=== PATIENT | male | born 1935 | race Caucasian/White ===

== ENCOUNTER 2017-01-21 15:17 | Inpatient (IN) | payer OTHER ==
[~2017-01-21] VITALS: Ht 182.8 cm; Wt 89.8 kg
[2017-01-21] VITALS (19 sets, daily range): BP systolic 98–139; BP diastolic 56–97
--- NOTE | ~2017-01-21 | PR ---
[place], [place] PROGRESS NOTE NAME: ALVINO SIMONS UNIT #: [id number] ROOM: 522 DOCTOR: CAROLINE CHEN MD BIRTHDATE: [birth year] DOS: SUBJECTIVE: The patient is sitting up in bed, does not have any specific cardiac complaint. No chest pain, no symptomatic palpitation, no dizziness, no lightheadedness. OBJECTIVE: VITAL SIGNS: Blood pressure 115/72, heart rate 74, respiratory rate of 14, temperature 97.9. NECK: Good upstroke, no bruit. HEART: S1, S2 with no rub. LUNGS: Clear to auscultation. Slight decreased air movement. LOWER EXTREMITIES: Mild ankle edema. LABORATORY DATA: INR is 1.5. Rhythm strips still showing atrial flutter. REVIEW OF SYSTEMS: Negative other than what mentioned above. ASSESSMENT AND PLAN: 1. Current presentation with headache and back pain. 2. Evidence of atrial flutter with relatively fast ventricular response that has been better responding now to Toprol. I will increase dose to Lopressor. I will switch to Toprol long acting and increase the dose to 37.5 mg b.i.d. 3. Obtain records regarding this patient's previous cardiac workup. 4. Continue Lovenox as long as patient's INR less than 2.0. This can be done as an outpatient with subcutaneous Lovenox 1 mg/kg b.i.d. and close followup on PT/INR. 5. Increase activity. 6. Headache and back pain per PCP. 7. No further cardiac testing at this time. CAROLINE CHEN MD CM:PNTRANS [phone] CAROLINE CHEN MD 01/23/17 1453 interface
--- NOTE | ~2017-01-21 | PR ---
[place], [place] PROGRESS NOTE NAME[id number] UNIT #: [id number] ROOM: 522 DOCTOR: CAROLINE CHEN MD BIRTHDATE: [birth year] DOS: 01/24/2017 SUBJECTIVE: The patient today continues to do well. Denies any specific cardiac complaints, sitting up in bed. He expressed his wish that he wants to go home. OBJECTIVE: VITAL SIGNS: Blood pressure 124/78, heart rate 56, respiratory rate of 18, temperature 97.6. NECK: Good upstroke. No bruit. HEART: S1, S2 with no rub. LUNGS: Decreased air movement, but clear to auscultation. No wheezing, no rales. ABDOMEN: Soft, nontender, present bowel sounds. EXTREMITIES: There is no significant edema. ASSESSMENT AND PLAN: 1. Presentation with incidental finding for AFib and flutter with A-flutter with RVR. 2. The patient was subtherapeutic on his Coumadin and continued to be so for the past 2 days. For that, I will increase Coumadin to 6 mg today. This can be dropped to 4 mg upon discharge. 3. Continue Lovenox 1 mg/kg subQ b.i.d. until the patient's INR is over 2. 4. Continue current dose of Toprol XL 37.5 mg b.i.d. 5. Increase activity. 6. The patient can be discharged home if Lovenox can be supplied for the next 5 days as an outpatient with continued monitoring of his INR and Coumadin. 7. The patient can elect to follow up with our clinic within 1-2 weeks as an outpatient. CAROLINE CHEN MD CM:PNTRANS [id number] CAROLINE CHEN MD 01/25/17 0432 interface
--- NOTE | ~2017-01-21 | CON ---
[place], [place] REPORT OF CONSULTATION NAME[id number] UNIT #: [id number] ROOM: 522 DOCTOR: GUSTAVO BETANCOURTAMAIRANIJOJO BIRTHDATE: [birth year] DOS: REQUESTING PHYSICIAN: Meredith Mcclellan DO REASON FOR CONSULTATION: Atrial flutter. ASSESSMENT: 1. Current presentation for incidental finding of atrial flutter on neuromonitoring. The patient was asked by John to come in to the hospital. 2. Absolutely no cardiac complaints. 3. Recent bypass surgery along with aortic valve replacement at the [facility]. 4. Hypertension. 5. Hyperlipidemia. 6. Previous history of tobacco abuse. 7. Previous history of bypass surgery and aortic valve replacement 11 years ago. No details available. PLAN: 1. Cycle cardiac enzymes. 2. Increase Coumadin dose to 3 mg daily. 3. Initiate Lovenox 1 mg/kg subcutaneous b.i.d. until patient's INR is over 2. 4. Increase Coreg to 6.25 mg b.i.d. 5. Plan for TE cardioversion as an outpatient within 2-3 weeks from adequate anticoagulation. 6. Check with insurance for type of coverage where patient can have his procedure. HISTORY OF PRESENT ILLNESS: The patient is a pleasant 81-year-old gentleman, unknown to our practice, was referred by Dr. Mcclellan for further evaluation of an incidental finding of atrial flutter. Apparently, the patient was called from a [employer] to come in to the hospital for what looks like an irregular rhythm. The patient was found to have atrial flutter with relatively fast heart rate. From the cardiology point of view, the patient have been doing relatively well since his surgery which was done in November 05 along with aortic valve replacement. The patient went through rehab, has been doing relatively well, never had complaint of chest pain, chest pressure, heaviness or tightness. Never had any symptomatic palpitation or any associated dizziness, lightheadedness, or near syncope. No weakness, no tiredness reported. The patient sleeps on one pillow with no reported PND, orthopnea or pedal edema. No fever, no chills, no night sweats, maintain good appetite, no weight loss. Overall, the patient have been doing relatively well since his surgery. PAST MEDICAL HISTORY: As detailed in my assessment. SOCIAL HISTORY: The patient quit smoking in 1999. He started smoking in 1958. No heavy alcohol or illicit drug abuse. FAMILY HISTORY: There is no early family history of heart disease. [place], [place] REPORT OF CONSULTATION NAME: ALVINO SIMONS UNIT #: [id number] ROOM: 522 DOCTOR: CAROLINE CHEN MD BIRTHDATE: [birth year] CURRENT MEDICATIONS: On presentation is Coumadin, Coreg, vitamin D, Aldactone, aspirin, hydralazine, Protonix, bisacodyl, morphine, [place], Zofran, Tylenol. ALLERGIES: The patient is allergic to PENICILLIN and STATIN. REVIEW OF SYSTEMS: Currently, the patient denies any headache, diplopia, or blurry vision. No fever, no chills, no night sweats. No abdominal pain, no bright blood per rectum or tarry stools. The patient admits to joint pain, but no muscular pain. No anxiety and no depression. No polyuria, no polydipsia. No skin rash. Review of all other systems has been negative. PHYSICAL EXAMINATION: GENERAL: The patient is alert and oriented x 3. He is sitting up in bed, does not appear in distress. VITAL SIGNS: Blood pressure 116/67, heart rate 81, respiratory rate of 16, temperature 98.2. HEENT: Extraocular muscles intact. Pupils equal, round, reactive to light. Conjunctivae: No pallor. Throat: No petechiae. NECK: Good carotid upstroke, faint bruit could be heard over both carotids. No lymphadenopathy and no thyromegaly. HEART: S1, S2 with faint holosystolic ejection murmur in the left upper sternal border. No rubs or sternal heaves. CHEST AND BACK: Not deformities. LUNGS: Decreased air movement, minimal rhonchi to third base bilateral, slightly improved with deep cough. No wheezing, no michelle rales. ABDOMEN: Soft, nontender. Positive bowel sounds. Slightly obese. No masses, no bruits. EXTREMITIES: Lower extremities: There is mild ankle edema. Faint distal pulses. NEUROLOGIC: Grossly nonfocal. SKIN: No significant rash. LABORATORY DATA: White count 4.4, hemoglobin 11.4. INR is 1.7, subsequent INR is 1.6. Potassium 4.0, GFR more than 60%. Normal liver function test. LDL 101, HDL 41, TSH 2.2. CAROLINE CHEN MD CM:CONSTR:REPORT OF CONSULTATION 1224 01/22/17 1527 interface
[2017-01-21 16:06] LABS: INTERNATIONAL NORM RATIO 1.7 (2.0-3.5); PROTHROMBIN TIME 18.5 SECONDS (9.0-12.4)
[2017-01-21 16:14] LABS: ALBUMIN 3.7 gm/dl (3.1-4.5); ALKALINE PHOSPHATASE 86 U/L (45-117); BILIRUBIN, TOTAL 0.6 mg/dl (0.2-1.0); BUN 20 mg/dl (7-24); CARBON DIOXIDE 27 mmol/L (21-32); CHLORIDE 104 mmol/L (98-107); EST GLOM FILT AFRICAN AMERICAN 53 ml/min; GLUCOSE 157 mg/dL (65-99); MAGNESIUM 1.9 mg/dL (1.5-2.1); SGOT/AST 16 IU/L (3-35); SGPT/ALT 22 U/L (12-78); SODIUM 138 mmol/L (136-145); TOTAL PROTEIN 7.2 gm/dL (6.4-8.2)
[2017-01-21 16:25] LABS: TROPONIN I < 0.015 ng/ml (<0.045)
[2017-01-21 16:39] LABS: BASO # 0.1 10*3/uL (0.0-0.1); BASO % 1.6 % (0.0-1.0); EOS # 0.1 10*3/uL (0.0-0.4); EOS % 2.9 % (1.0-4.0); HEMATOCRIT 36.9 % (42.0-52.0); HEMOGLOBIN 11.9 g/dl (14.0-18.0); LYMPH # 1.2 10*3/uL (1.3-4.4); LYMPH % 23.6 % (27.0-41.0); MEAN CELL VOLUME 94.6 fl (80.0-94.0); MEAN CORPUSCULAR HGB 30.5 pg (27.0-31.0); MEAN CORPUSCULAR HGB CONC 32.2 g/dl (33.0-37.0); MEAN PLATELET VOLUME 9.1 fl (9.6-12.3); MONO # 0.5 10*3/uL (0.1-1.0); MONO % 10.2 % (3.0-9.0); NEUT % 61.5 % (47.0-73.0); PLATELET COUNT AUTOMATED 120 10*3/uL (130-400); RED CELL DISTRI WIDTH 15.9 % (0-14.5); WHITE BLOOD COUNT 4.9 10*3/uL (4.8-10.8)
[2017-01-21] MEDS ORDERED: FLOMAX0.4 MG PO (17:40)
[2017-01-21] MEDS ORDERED: LISINOPRIL2.5 MG PO (17:40)
[2017-01-21] MEDS ORDERED: METOPROLOL SUCC25 M2 PO (17:41)
[2017-01-21] MEDS ORDERED: COUMADIN3 M1 PO ×2 (17:45→17:46)
[2017-01-21] MEDS ORDERED: HYDRALAZINE10 MG PO (17:46)
[2017-01-21] MEDS ORDERED: ALDACTONE25 M1 PO (17:46)
[2017-01-21] MEDS ORDERED: VITAMIN D1000 IU PO (17:47)
[2017-01-21] MEDS ORDERED: ASPIRIN CHEWABL81 MG PO (17:48)
[2017-01-21] MEDS ORDERED: OMEPRAZOLE20 M2 PO (17:49)
[2017-01-21] MEDS ORDERED: COREG3.125 MG PO (17:49)
[2017-01-22] VITALS (8 sets, daily range): BP systolic 104–131; BP diastolic 58–74
[2017-01-22 06:41] LABS: BASO # 0.1 10*3/uL (0.0-0.1); BASO % 1.4 % (0.0-1.0); EOS # 0.2 10*3/uL (0.0-0.4); EOS % 3.9 % (1.0-4.0); HEMATOCRIT 35.2 % (42.0-52.0); HEMOGLOBIN 11.4 g/dl (14.0-18.0); LYMPH % 23.7 % (27.0-41.0); MEAN CELL VOLUME 95.4 fl (80.0-94.0); MEAN CORPUSCULAR HGB 30.9 pg (27.0-31.0); MEAN CORPUSCULAR HGB CONC 32.4 g/dl (33.0-37.0); MEAN PLATELET VOLUME 9.9 fl (9.6-12.3); MONO # 0.4 10*3/uL (0.1-1.0); MONO % 9.4 % (3.0-9.0); NEUT # 2.7 10*3/uL (2.3-7.9); NEUT % 61.1 % (47.0-73.0); PLATELET COUNT AUTOMATED 120 10*3/uL (130-400); RED BLOOD COUNT 3.69 10*6/uL (4.50-5.90); WHITE BLOOD COUNT 4.4 10*3/uL (4.8-10.8)
[2017-01-22 07:00] LABS: INTERNATIONAL NORM RATIO 1.6 (2.0-3.5); PROTHROMBIN TIME 17.6 SECONDS (9.0-12.4)
[2017-01-22 07:05] LABS: ALBUMIN 3.3 gm/dl (3.1-4.5); ALKALINE PHOSPHATASE 76 U/L (45-117); BILIRUBIN, TOTAL 0.9 mg/dl (0.2-1.0); BUN 16 mg/dl (7-24); CARBON DIOXIDE 26 mmol/L (21-32); CHLORIDE 107 mmol/L (98-107); CHOLESTEROL 158 mg/dL (<200); EST GLOM FILT AFRICAN AMERICAN > 60 ml/min; GLUCOSE 89 mg/dL (65-99); HDL CHOLESTEROL 41 mg/dl (40-60); LDL CHOLESTEROL 101 mg/dL (9-159); PHOSPHOROUS 2.7 mg/dL (2.5-4.9); SGOT/AST 14 IU/L (3-35); SGPT/ALT 17 U/L (12-78); SODIUM 140 mmol/L (136-145); TOTAL PROTEIN 6.7 gm/dL (6.4-8.2); TRIGLYCERIDES 79 mg/dl (<150); VLDL CHOLESTEROL 16 mg/dL (6-40)
[2017-01-22] MEDS ORDERED: TAMSULOSIN HCL0.4 MG PO (17:03)
[2017-01-23] VITALS (7 sets, daily range): BP systolic 106–137; BP diastolic 67–91
[2017-01-23 06:11] LABS: BASO # 0.1 10*3/uL (0.0-0.1); BASO % 1.7 % (0.0-1.0); EOS # 0.2 10*3/uL (0.0-0.4); EOS % 4.4 % (1.0-4.0); HEMATOCRIT 38.6 % (42.0-52.0); HEMOGLOBIN 12.1 g/dl (14.0-18.0); LYMPH # 1.2 10*3/uL (1.3-4.4); LYMPH % 24.3 % (27.0-41.0); MEAN CELL VOLUME 96.7 fl (80.0-94.0); MEAN CORPUSCULAR HGB 30.3 pg (27.0-31.0); MEAN CORPUSCULAR HGB CONC 31.3 g/dl (33.0-37.0); MEAN PLATELET VOLUME 9.4 fl (9.6-12.3); MONO # 0.5 10*3/uL (0.1-1.0); MONO % 10.3 % (3.0-9.0); NEUT # 2.8 10*3/uL (2.3-7.9); NEUT % 58.9 % (47.0-73.0); PLATELET COUNT AUTOMATED 126 10*3/uL (130-400); RED BLOOD COUNT 3.99 10*6/uL (4.50-5.90); RED CELL DISTRI WIDTH 16.1 % (0-14.5); WHITE BLOOD COUNT 4.8 10*3/uL (4.8-10.8)
[2017-01-23 06:15] LABS: BUN 17 mg/dl (7-24); CARBON DIOXIDE 29 mmol/L (21-32); CHLORIDE 106 mmol/L (98-107); EST GLOM FILT AFRICAN AMERICAN > 60 ml/min; GLUCOSE 90 mg/dL (65-99); POTASSIUM 4.4 mmol/L (3.5-5.1); SODIUM 141 mmol/L (136-145)
[2017-01-23 06:40] LABS: INTERNATIONAL NORM RATIO 1.5 (2.0-3.5); PROTHROMBIN TIME 16.6 SECONDS (9.0-12.4)
[2017-01-24] VITALS: BP 126/77
[2017-01-24 06:17] LABS: INTERNATIONAL NORM RATIO 1.5 (2.0-3.5); PROTHROMBIN TIME 16.4 SECONDS (9.0-12.4)
[2017-01-24 08:00] VITALS: BP 102/60; BP 124/78
[2017-01-24 11:35] VITALS: BP 124/78
[2017-01-24] MEDS ORDERED: ENOXAPARIN100 MG/1 M SC (12:10)
[2017-01-24] MEDS ORDERED: COUMADIN6 M2 PO (15:00)
[2017-01-24] MEDS ORDERED: METOPROLOL SUCC25 M2 PO (15:00)
== END 2017-01-24 17:36 | disposition home or self-care (01) | DRG 308 ==
LOC: ED 15:17 → EDHOLD 17:02 → 5E 17:02
PROVIDERS: Emergency Medicine; Family Medicine; Internal Medicine
DX: I48.92 Unspecified atrial flutter (principal); N17.0 Acute kidney failure with tubular necrosis; D69.6 Thrombocytopenia, unspecified; I25.10 Atherosclerotic heart disease of native coronary artery without angina pectoris; D64.9 Anemia, unspecified; I10 Essential (primary) hypertension; E78.5 Hyperlipidemia, unspecified; N40.0 Benign prostatic hyperplasia without lower urinary tract symptoms; Z88.0 Allergy status to penicillin; Z87.891 Personal history of nicotine dependence; Z79.82 Long term (current) use of aspirin; Z88.9 Allergy status to unspecified drugs, medicaments and biological substances; Z79.899 Other long term (current) drug therapy; Z95.1 Presence of aortocoronary bypass graft

== ENCOUNTER 2017-01-28 12:02 | Inpatient (IN) | payer OTHER ==
[~2017-01-28] VITALS: Ht 185.4 cm; Wt 83.9 kg
--- NOTE | ~2017-01-28 | CON ---
[place], [place] REPORT OF CONSULTATION NAME[id number] UNIT #: [id number] ROOM: 516 DOCTOR: MELISSA PINEDA MD BIRTHDATE: [birth year] DOS: 01/29/2017 CARDIOLOGY CONSULT. REASON FOR CONSULTATION: Atrial flutter. HISTORY OF PRESENT ILLNESS: This is an 81-year-old patient with history of coronary artery disease with recent mitral valve replacement, atrial flutter, was sent to the Emergency Room because of rapid heart rate with underlying atrial flutter. Evidently, he was in the hospital last week and seen by Dr. Kam and was discharged home. Apparently, he did not get his metoprolol, but he denied any chest pain, shortness of breath, palpitations, dizziness. No edema, no orthopnea, no PND, no fever or chills, no cough, no hemoptysis. No genitourinary or gastrointestinal symptoms. No neurological symptoms. No headache, no visual symptoms. REVIEW OF SYSTEMS: Review of the 10 systems negative except as mentioned above. PAST MEDICAL HISTORY: 1. Coronary artery disease, status post bypass in early 1999. 2. Valvular heart disease, status post mitral valve replacement in 10/2016 at [facility]. 3. Atrial flutter diagnosed in January 2017. 4. Hypertension. 5. Dyslipidemia. 6. Anemia. PAST SURGICAL HISTORY: History of bypass surgery, history of mitral valve replacement with a bioprosthetic valve, history of back surgery, history of tonsillectomy. ALLERGIES: Noted. FAMILY HISTORY: Father in his 60s, cause unknown. Mother in her 60s, cause unknown. SOCIAL HISTORY: The patient does not drink, smoke and does not use illicit drugs. HOME MEDICATIONS: Reviewed. PHYSICAL EXAMINATION: VITAL SIGNS: Blood pressure 110/72, pulse 74, respirations 16. GENERAL: Alert, comfortable, in no acute distress. HEENT: Pupils are round and equal. No jaundice. NECK: Supple, no distended neck veins, no carotid bruit. CHEST: Symmetrical, nontender. LUNGS: Clear to auscultation bilaterally. HEART: Irregularly irregular. No S3, grade 1/6 systolic murmur. ABDOMEN: Benign, nontender. Bowel sounds normal. [place], [place] REPORT OF CONSULTATION NAME: ALVINO SIMONS UNIT #: [id number] ROOM: 516 DOCTOR: MIRIAM BETANCOURT,MELISSA BIRTHDATE: [birth year] EXTREMITIES: Showed no edema. Distal pulses are palpable. SKIN: Warm and dry. No cyanosis, no clubbing. NEUROLOGIC: The patient is alert, oriented. No focal neurologic deficit. RECTAL: Deferred. GENITOURINARY: Deferred. MUSCULOSKELETAL: No joint tenderness or swelling. REVIEW OF THE DIAGNOSTIC TESTS: Rhythm strips, labs and EKG reviewed. Initial EKG, atrial fibrillation with rapid ventricular rate with underlying right bundle branch block. Rhythm strip showed atrial flutter occasional rapid ventricular rate. The patient also had a few pauses between 2 seconds with maximum of 4.5 seconds at night around 8:50 p.m., asymptomatic. CBC, chemistry and cardiac enzymes reviewed. IMPRESSION: 1. Atrial fibrillation with occasional rapid ventricular rate as well as occasional bradycardia. 2. Valvular heart disease, status post mitral valve replacement in 10/2016. 3. Coronary artery disease, status post bypass surgery several years ago. 4. Right bundle branch block. 5. Hypertension. 6. Anemia. RECOMMENDATIONS: 1. I will decrease metoprolol to 25 mg twice a day, currently heart rate and blood pressure are stable. 2. INR is therapeutic at 2.0 yesterday and 1.9 today, so I will give him Coumadin 9 mg today. 3. He will need outpatient 2-4 week cardiac event monitor to followup of his danyelle and tachyarrhythmias. significant bradycardia, he will need a permanent pacemaker and if he had significant tachyarrhythmias, then we need to increase his metoprolol dose. 4. He can be discharged home today from cardiac standpoint and he will [facility] with [facility], also have his cardiac event monitor done in the [facility] in [place]. 5. He will follow up with his [facility] physician for his PT/INR monitoring with the target range of 2-3. 6. There is no family at bedside at the time of my examination. [place], [place] REPORT OF CONSULTATION NAME: ALVINO SIMONS Brad UNIT #: [id number] ROOM: 516 DOCTOR: MIRIAM BETANCOURT,MELISSA GUZMANTE: [birth year] MELISSA PINEDA MD CM:CONSTR:REPORT OF CONSULTATION 1216 01/30/17 0225 interface
[~2017-01-28 12:02] MED LIST: ALDACTONE25 M1 PO; ASPIRIN CHEWABL81 MG PO; COREG3.125 MG PO; COUMADIN3 M1 PO; COUMADIN6 M2 PO; ENOXAPARIN100 MG/1 M SC; FLOMAX0.4 MG PO; HYDRALAZINE10 MG PO; LISINOPRIL2.5 MG PO; METOPROLOL SUCC25 M2 PO; OMEPRAZOLE20 M2 PO; TAMSULOSIN HCL0.4 MG PO; VITAMIN D1000 IU PO
[2017-01-28 12:08] VITALS: BP 124/68
[2017-01-28 13:08] LABS: BASO # 0.1 10*3/uL (0.0-0.1); BASO % 1.5 % (0.0-1.0); EOS # 0.2 10*3/uL (0.0-0.4); EOS % 3.3 % (1.0-4.0); HEMATOCRIT 40.5 % (42.0-52.0); HEMOGLOBIN 12.8 g/dl (14.0-18.0); LYMPH # 1.2 10*3/uL (1.3-4.4); LYMPH % 26.2 % (27.0-41.0); MEAN CELL VOLUME 95.3 fl (80.0-94.0); MEAN CORPUSCULAR HGB 30.1 pg (27.0-31.0); MEAN CORPUSCULAR HGB CONC 31.6 g/dl (33.0-37.0); MEAN PLATELET VOLUME 9.6 fl (9.6-12.3); MONO # 0.5 10*3/uL (0.1-1.0); MONO % 10.8 % (3.0-9.0); NEUT # 2.6 10*3/uL (2.3-7.9); PLATELET COUNT AUTOMATED 135 10*3/uL (130-400); RED BLOOD COUNT 4.25 10*6/uL (4.50-5.90); RED CELL DISTRI WIDTH 15.7 % (0-14.5); WHITE BLOOD COUNT 4.5 10*3/uL (4.8-10.8)
[2017-01-28 13:17] LABS: PROTHROMBIN TIME 21.7 SECONDS (9.0-12.4)
[2017-01-28 13:26] LABS: ALBUMIN 3.7 gm/dl (3.1-4.5); ALKALINE PHOSPHATASE 90 U/L (45-117); BILIRUBIN, TOTAL 1.1 mg/dl (0.2-1.0); BUN 18 mg/dl (7-24); C-REACTIVE PROTEIN 0.45 MG/DL (0-0.3); CARBON DIOXIDE 27 mmol/L (21-32); CHLORIDE 103 mmol/L (98-107); CKMB 1.1 ng/ml (0.5-3.6); CPK 47 U/L (39-308); EST GLOM FILT AFRICAN AMERICAN > 60 ml/min; GLUCOSE 77 mg/dL (65-99); MAGNESIUM 2.1 mg/dL (1.5-2.1); POTASSIUM 4.5 mmol/L (3.5-5.1); SGOT/AST 18 IU/L (3-35); SGPT/ALT 25 U/L (12-78); SODIUM 138 mmol/L (136-145); TOTAL PROTEIN 7.6 gm/dL (6.4-8.2); TROPONIN I < 0.015 ng/ml (<0.045)
[2017-01-28] MEDS ORDERED: LISINOPRIL2.5 MG PO (16:30)
[2017-01-28 16:51] VITALS: BP 138/90
[2017-01-28 20:00] VITALS: BP 104/64
[2017-01-29] VITALS: BP 108/70
[2017-01-29 06:22] LABS: BASO # 0.1 10*3/uL (0.0-0.1); BASO % 1.6 % (0.0-1.0); EOS # 0.2 10*3/uL (0.0-0.4); EOS % 4.5 % (1.0-4.0); LYMPH # 1.2 10*3/uL (1.3-4.4); LYMPH % 27.5 % (27.0-41.0); MEAN CELL VOLUME 95.4 fl (80.0-94.0); MEAN CORPUSCULAR HGB 30.9 pg (27.0-31.0); MEAN CORPUSCULAR HGB CONC 32.4 g/dl (33.0-37.0); MEAN PLATELET VOLUME 9.9 fl (9.6-12.3); MONO # 0.4 10*3/uL (0.1-1.0); MONO % 9.6 % (3.0-9.0); NEUT # 2.4 10*3/uL (2.3-7.9); NEUT % 56.3 % (47.0-73.0); PLATELET COUNT AUTOMATED 125 10*3/uL (130-400); RED BLOOD COUNT 3.88 10*6/uL (4.50-5.90); RED CELL DISTRI WIDTH 15.6 % (0-14.5); WHITE BLOOD COUNT 4.3 10*3/uL (4.8-10.8)
[2017-01-29 06:49] LABS: ALBUMIN 3.5 gm/dl (3.1-4.5); BILIRUBIN, TOTAL 0.6 mg/dl (0.2-1.0); BUN 17 mg/dl (7-24); CARBON DIOXIDE 29 mmol/L (21-32); CHLORIDE 105 mmol/L (98-107); EST GLOM FILT AFRICAN AMERICAN > 60 ml/min; GLUCOSE 85 mg/dL (65-99); MAGNESIUM 2.1 mg/dL (1.5-2.1); PHOSPHOROUS 2.7 mg/dL (2.5-4.9); POTASSIUM 4.2 mmol/L (3.5-5.1); SGOT/AST 21 IU/L (3-35); SGPT/ALT 25 U/L (12-78); SODIUM 140 mmol/L (136-145); TOTAL PROTEIN 7.1 gm/dL (6.4-8.2)
[2017-01-29 06:50] LABS: ALKALINE PHOSPHATASE 80 U/L (45-117)
[2017-01-29 06:54] LABS: INTERNATIONAL NORM RATIO 1.9 (2.0-3.5); PROTHROMBIN TIME 21.3 SECONDS (9.0-12.4)
[2017-01-29 08:00] VITALS: BP 110/72
[2017-01-29] MEDS ORDERED: LOPRESSOR25 MG PO (10:44)
[2017-01-29 12:00] VITALS: BP 117/67
== END 2017-01-29 15:00 | disposition home or self-care (01) | DRG 309 ==
LOC: ED 12:02 → EDHOLD 14:49 → 5E 14:49
PROVIDERS: Internal Medicine; Nurse Practitioner Family
DX: I48.92 Unspecified atrial flutter (principal); I25.810 Atherosclerosis of coronary artery bypass graft(s) without angina pectoris; D69.6 Thrombocytopenia, unspecified; D53.9 Nutritional anemia, unspecified; I48.91 Unspecified atrial fibrillation; N40.0 Benign prostatic hyperplasia without lower urinary tract symptoms; I45.10 Unspecified right bundle-branch block; I10 Essential (primary) hypertension; E78.5 Hyperlipidemia, unspecified; D72.819 Decreased white blood cell count, unspecified; Z95.2 Presence of prosthetic heart valve; Z87.891 Personal history of nicotine dependence; Z79.01 Long term (current) use of anticoagulants; Z79.82 Long term (current) use of aspirin; Z79.899 Other long term (current) drug therapy; Z88.0 Allergy status to penicillin; Z88.8 Allergy status to other drugs, medicaments and biological substances